=== PATIENT | male | born 1955 | race Caucasian/White ===

== ENCOUNTER → 2020-02-06 | Outpatient (CLI) | payer MEDICARE, OTHER ==
--- NOTE | 2020-02-06 16:20 | Diagnostic Imaging Report ---
Sternum at 3:42. Indication: Lump on upper sternum. There are no prior studies available for comparison. 2 views were obtained. Findings: There is no fracture, dislocation or acute bony abnormality noted. There is no sign of a retrosternal mass. There is no evidence for a mass along the anterior aspect of the sternum either. The anterior margin of the superior half of the manubrium is somewhat indistinct, however. This may be secondary to overlying osseous structures as opposed to a mass lesion. If further evaluation is desired, then ct would be recommended. Impression: 1. There is no evidence for an acute bony abnormality. 2. The indistinct appearance of the anterior cortex of the superior half of the manubrium may be secondary to overlying osseous structures as opposed to mass lesion. Recommendations as above. Dictated by: Dictated on workstation # [id number]
== END ==
LOC: RAD 15:33
PROVIDERS: ATTEND Family Medicine
DX: R22.2 Localized swelling, mass and lump, trunk (principal)
CPT/HCPCS: 71120

== ENCOUNTER 2020-02-24 05:32 | Outpatient (RCR) | payer MEDICARE, OTHER ==
[~2020-02-24] VITALS: Ht 177 cm; Wt 84.0 kg
[~2020-02-24 05:32] MED LIST: ASPI-999 PO; ENAL20TA16 PO; MULT-1136 PO; SIMV40TA25 PO; VIT1CAPS44 PO
== END 2020-02-24 14:46 | disposition home or self-care (01) ==
LOC: PREOP 05:32
PROVIDERS: ATTEND Surgery
DX: Z01.818 Encounter for other preprocedural examination (principal); Z20.828 Contact with and (suspected) exposure to other viral communicable diseases
CPT/HCPCS: 87635

== ENCOUNTER → 2020-03-02 | Outpatient (CLI) | payer MEDICARE, OTHER | LOC: LABNPT 05:56 | PROVIDERS: ATTEND Nurse Practitioner Family | DX: Z01.812 Encounter for preprocedural laboratory examination (principal); Z12.11 Encounter for screening for malignant neoplasm of colon; Z20.828 Contact with and (suspected) exposure to other viral communicable diseases; Z86.010 Personal history of colon polyps; Z80.0 Family history of malignant neoplasm of digestive organs | CPT/HCPCS: 87635 ==

== ENCOUNTER 2020-03-04 09:24 | Day surgery (SDC) | payer MEDICARE, OTHER ==
[~2020-03-04] VITALS: Ht 177 cm; Wt 84.0 kg
[2020-03-04] VITALS (12 sets, daily range): BP systolic 115–170; BP diastolic 67–97
[2020-03-04] MEDS ORDERED: NS IV 500 ML 500 ML ONE (09:28)
--- NOTE | 2020-03-04 09:50 | Conscious Sedation/ASA ---
Conscious Sedation Pre-Proced Time 09:30 ASA Score 2 For ASA 3 and 4: Consider anesthesia and medical clearance. Also, for patients with a history of failed moderate sedation consider anesthesia. Airway Lungs Heart ASA score ASA 1: a normal healthy patient ASA 2: a patient with a mild systemic disease (mid diabetes, controlled hypertension, obesity ASA 3: a patient with a severe systemic disease that limits activity (angina, COPD, prior Myocardial infarction) ASA 4: a patient with an incapacitating disease that is a constant threat to life (CHF, renal failure) ASA 5: a moribund patient not expected to survive 24 hrs. (ruptured aneurysm) ASA 6: a declared brain- patient whose organs are being harvested. For emergent operations, add the letter E after the classification Mallampati Classification Grade 2 Sedation Plan Analgesia, Amnesia, Plan communicated to team members, Discussed options with patient/fam, Discussed risks with patient/fam The patient is an appropriate candidate to undergo the planned procedure, sedation, and anesthesia. The patient immediately re-assessed prior to indication. ALON MOON MD Mar 04, 2020 09:50
[2020-03-04] MEDS ORDERED: LIDOCAINE JELLY 2% 6 ML SYRINGE ONE (09:51)
--- NOTE | 2020-03-04 09:51 | Progress Note-Pre Operative ---
Pre-Operative Progress Note H&P Reviewed The H&P was reviewed, patient examined and no changes noted. Date Seen by Provider: Mar 04, 2020 Time Seen by Provider: : Date H&P Reviewed: Mar 04, 2020 Time H&P Reviewed: : Pre-Operative Diagnosis: screening colo/family hx ALON MOON MD Mar 04, 2020 09:51
[2020-03-04] MEDS ORDERED: fentaNYL INJECTION 100 MCG/2 ML AMP ONE (09:52)
[2020-03-04] MEDS ORDERED: MIDAZOLAM 5 MG/5 ML (VERSED) VIAL ONE ×2 (09:52)
--- NOTE | 2020-03-04 09:52 | Discharge Inst-Surgical ---
D/C Lap Instructions-SARAI Follow Up Activity as tolerated High Fiber Diet 25g or more per day Avoid Alcohol, Caffeine, Spicy White Earth and Acid foods. Drink 64 fluid oz or more of fluids per day. Symptoms to Report: Fever over 101 degree F, Nausea/Vomiting If any problems/questions: Contact your physician or go to Emergency Room ALON MOON MD Mar 04, 2020 09:52
[2020-03-04] MEDS ORDERED: ONDANSETRON 4 MG/2 ML (SDV) Z0FRAN IVP PRN (10:00)
[2020-03-04] MEDS ORDERED: HYDROcodone/APAP 5 MG/325 MG (LORTAB) TAB PO PRN (10:00)
[2020-03-04] MEDS ORDERED: morphine INJ 10 MG/ML 1ML (SYR OR VIAL) IVP PRN ×2 (10:00)
[2020-03-04] MEDS ORDERED: ACETAMINOPHEN 325 MG TABLET PO PRN (10:00)
--- NOTE | 2020-03-04 10:35 | Progress Note-Post Operative ---
Post-Operative Progess Note Surgeon (s)/Billing Representative (s) Surgeon ALON MOON MD Billing Representative: none Pre-Operative Diagnosis screening colo/family hx Post-Operative Diagnosis mild chronic stage 2 ext and int hemorrhoids. Procedure & Operative Findings Date of Procedure 03/04/20 Procedure Performed/Findings colonoscopy Anesthesia Type cs Estimated Blood Loss Estimated blood loss (mL): minimal Specimens/Packing Specimens Removed none ALON MOON MD Mar 04, 2020 10:35
[2020-03-04] MEDS ORDERED: NS IV 500 ML 500 ML IV PRN (11:11)
[2020-03-04] MEDS ORDERED: fentaNYL INJECTION 100 MCG/2 ML AMP IVP ONE (11:15)
[2020-03-04] MEDS ORDERED: LIDOCAINE JELLY 2% 6 ML SYRINGE MM PRN (11:15)
[2020-03-04] MEDS ORDERED: MIDAZOLAM 5 MG/5 ML (VERSED) VIAL IV ONE (11:15)
--- NOTE | 2020-03-04 14:52 | OPERATIVE REPORT ---
DATE OF SERVICE: 03/04/2020 ATTENDING PRIMARY CARE PHYSICIAN: Nicholas Devries MD. PREOPERATIVE DIAGNOSIS: Screening colonoscopy with family history of colon cancer. POSTOPERATIVE DIAGNOSIS: Mild chronic stage II external and internal hemorrhoids. PROCEDURE PERFORMED: Colonoscopy. SURGEON: Alon Moon MD ANESTHESIA: Conscious sedation. ESTIMATED BLOOD LOSS: Minimal. FINDINGS: Same as postoperative diagnosis. DISPOSITION: The patient tolerated the procedure well. INDICATIONS FOR PROCEDURE: The patient is a 64-year-old male in need of a screening colonoscopy. Last colonoscopy was five years ago and he states that a few benign polyps were identified. He does have a family history of colon cancer with his brother being diagnosed with the disease at around the age 55. He is otherwise doing well, does not report any red blood per rectum nor any dark tarry stools. DESCRIPTION OF PROCEDURE: The patient was brought to the endoscopy suite and laid in the left lateral decubitus position. After adequate IV pain and sedative medications and conscious sedation anesthesia, a digital rectal examination was performed. Mild chronic stage II external and internal hemorrhoids were identified, which were not actively edematous nor inflamed and no bleeding. Normal sphincter tone was felt and there were no palpable masses. Prostate gland was palpable and appeared normal. The endoscope was then intubated into the anus and rectum gently insufflated. The endoscope was then advanced to the valves of Nichols of the rectum with no polyps or any neoplasms identified. Through the sigmoid colon, no diverticulosis identified. The endoscope was then advanced and remainder of the descending, transverse and ascending colon to the cecum. These segments were normal. There were no polyps or any neoplasms identified throughout the colon or rectum. The endoscope was then slowly withdrawn while taking a second look and suctioning of residual air with no additional findings. The patient tolerated the procedure well. We will recommend continued medical management with a high fiber diet with at least 30 grams of fiber daily as well as significant amounts of water to promote soft stools on a daily basis. We will also still recommend a colonoscopy approximately every 5 years. Job ID: [id number] DocumentID: [id number] Dictated Date: 03/04/2020 10:31:49 Outside Dealer Sales Representative Date: 03/04/2020 14:51:33 Dictated By: ALON MOON MD
== END 2020-03-04 11:00 | disposition home or self-care (01) ==
LOC: ENDO 09:24
PROVIDERS: ATTEND Surgery
DX: Z12.11 Encounter for screening for malignant neoplasm of colon (principal); K64.1 Second degree hemorrhoids; I10 Essential (primary) hypertension; E78.00 Pure hypercholesterolemia, unspecified; Z79.899 Other long term (current) drug therapy; Z86.010 Personal history of colon polyps; Z80.41 Family history of malignant neoplasm of ovary; Z80.0 Family history of malignant neoplasm of digestive organs

== ENCOUNTER → 2020-10-02 | Outpatient (CLI) | payer MEDICARE, OTHER ==
--- NOTE | 2020-10-02 13:08 | Diagnostic Imaging Report ---
INDICATION: Lower back pain. COMPARISON: None FINDINGS: Frontal and lateral views of the lumbar spine were obtained. Alignment and vertebral heights are maintained. There is no fracture or destructive process. Mild multilevel degenerative changes are noted and consistent primarily of facet arthropathy within the lower lumbar spine. There may be mild height loss of the intervertebral disc space L5-S1 as well. Limited views of the abdomen demonstrate nonobstructive bowel gas pattern. Note is made of 9 mm extraosseous calcification projecting lateral to the L3-L4 intervertebral disc space on the right and only well visualized on the frontal view. IMPRESSION: 1. No acute fracture or dislocation of the lumbar spine. 2. Mild multilevel degenerative changes. 3. Extraosseous calcification on the right as described above. This could be venous phleboliths or enteric debris. Ureteral calculus is also consideration. If there is concern for renal collecting system calculi, CT is recommended. Dictated by: Dictated on workstation # [id number]
== END ==
LOC: RAD 09:51
PROVIDERS: ATTEND Family Medicine
DX: M47.26 Other spondylosis with radiculopathy, lumbar region (principal); M51.16 Intervertebral disc disorders with radiculopathy, lumbar region
CPT/HCPCS: 72100